=== PATIENT | male | born 2000 | race Caucasian/White ===

== ENCOUNTER → 2020-04-04 10:59 | Outpatient (CLI) | payer BC, SELFPAY ==
--- NOTE | 2020-04-04 | DI.RAD.S_ITS ---
PROCEDURE: XR LUMBAR SPINE 2-3V INDICATIONS: HX OF THORACIC SURGERY TECHNIQUE: 3 views of the lumbar spine were acquired. COMPARISON: None. FINDINGS: Bones: 5 [id number] vertebrae are present. There is normal bony alignment. No vertebral body compression fractures. No suspicious bony lesions. Schmorl's node noted in the superior endplate of the L2 vertebral body. Mild degenerative disc changes noted throughout the lumbar spine. Partially visualized fixation hardware noted in the lower thoracic spine. Soft tissues: Overlying bowel gas pattern is normal. No suspicious soft tissue calcifications. IMPRESSION: No fracture. No acute osseous lesion. If symptoms and/or clinical suspicion for pathology persists, evaluation with MRI may be helpful for further assessment. Dictated by: Meli Shafer MD, PhD on 04/04/2020 at 16:28 Approved by: Meli Shafer MD, PhD on 04/04/2020 at 16:47
--- NOTE | 2020-04-04 | DI.RAD.S_ITS ---
PROCEDURE: XR THORACIC SPINE 3V INDICATIONS: BACK PAIN TECHNIQUE: 3 views of the thoracic spine were acquired. COMPARISON: None. FINDINGS: Bones: Postsurgical changes compatible with T7-T12 posterior fusion. Orthopedic hardware is intact. No lucency is identified at the bone-hardware interface. Anterior wedging of the T10 vertebral body. No suspicious bony lesions. Twelve pairs of ribs are noted, and appear intact where visualized. Soft tissues: No paravertebral stripe thickening. IMPRESSION: 1. Status post T7-T12 fusion. 2. T10 compression deformity of indeterminate age which results in approximately 50% loss of normal anterior vertebral body height. Dictated by: Meli Shafer MD, PhD on 04/04/2020 at 16:48 Approved by: Meli Shafer MD, PhD on 04/04/2020 at 16:49
== END ==
PROVIDERS: Family Provider Pediatrics; PCP Registered Nurse Diabetes Educator; Referring Provider Physician Assistant; Visit Provider Physician Assistant
DX: M54.9 Dorsalgia, unspecified (principal); M47.816 Spondylosis without myelopathy or radiculopathy, lumbar region; M51.46 Schmorl's nodes, lumbar region; Z98.890 Other specified postprocedural states; Z98.1 Arthrodesis status
CPT/HCPCS: 72072; 72100

== ENCOUNTER → 2021-07-01 09:44 | Outpatient (CLI) | payer BC, SELFPAY ==
--- NOTE | 2021-07-01 09:45 | DI.MRI.S_ITS ---
PROCEDURE: MR THORACIC SPINE WO CON INDICATIONS: Status post T7 through T12 instrumented fusion TECHNIQUE: Noncontrast sagittal T1 spine echo and T2 fast spin echo, sagittal STIR, axial T1 and T2 fast spin echo through the thoracic spine. COMPARISON: None. FINDINGS: Image quality: Excellent. Alignment and Curvature: Normal thoracic vertebral body height and alignment. Postsurgical changes of T7-T12 instrumented fusion by means of bilateral rods and pedicle screws. No MR evidence of acute complicating hardware feature. Bone Marrow: No abnormal signal surrounding the hardware or elsewhere within the thoracic vertebral bodies. No suspicious focal marrow signal abnormality or marrow edema appreciated. Spinal Cord: Normal morphology and signal intensity of the thoracic cord. There is no syrinx. No unenhanced evidence of significant intradural pathology. Regional Soft Tissues: Regional soft tissues are within normal limits in the absence of IV contrast. Miscellaneous: No spinal canal or neural foraminal stenosis appreciated at any level in the thoracic spine. IMPRESSION: Postsurgical changes of T7-T12 posterior fixation. No acute complicating hardware feature or other significant abnormality identified. Dictated by: Bhanu Ruby M.D. on 07/02/2021 at 21:31 Approved by: Bhanu Ruby M.D. on 07/02/2021 at 21:33
== END ==
PROVIDERS: Family Provider Pediatrics; PCP Physician Assistant; Referring Provider Physical Medicine & Rehabilitation; Visit Provider Physical Medicine & Rehabilitation
DX: S22.009A Unspecified fracture of unspecified thoracic vertebra, initial encounter for closed fracture (principal); Z98.1 Arthrodesis status
CPT/HCPCS: 72146